=== PATIENT | female | born 1950 | race Caucasian/White ===

== ENCOUNTER 2017-07-12 13:36 | Outpatient (CLI) | payer MEDICARE ==
[2017-07-12 14:07] LABS: CALCIUM 10.2 mg/dL (8.5-10.3); CREATININE 1.2 mg/dL (0.4-1.0); POTASSIUM 4.1 mmol/L (3.5-5.0)
[2017-07-12] MEDS ORDERED: IOPAMIDOL-300 100 ML VIAL ONE (14:17)
[2017-07-12] MEDS ORDERED: IOPAMIDOL-300 50 ML VIAL ONE ×2 (14:17)
[2017-07-12] MEDS ORDERED: IOPAMIDOL-300 50 ML VIAL PO ONE (15:50)
[2017-07-12] MEDS ORDERED: IOPAMIDOL-300 100 ML VIAL IVP ONE (15:52)
--- NOTE | 2017-07-12 16:11 | CT Report ---
CT ABDOMEN AND PELVIS WITH CONTRAST: 07/12/2017 CLINICAL INDICATION: Left-sided pain. TECHNIQUE: Axial CT images of the abdomen and pelvis were obtained with 50 mL Isovue-300 intravenously, due to patient's renal dysfunction. No previous CT is available for comparison. In accordance with CT protocol optimization, one or more of the following dose reduction techniques were utilized for this exam: automated exposure control, adjustment of mA and/or KV based on patient size, or use of iterative reconstructive technique. FINDINGS: Limited evaluation of the lung bases demonstrates patchy atelectasis. Abdomen: There is a large mass in the left upper quadrant, involving the pancreas, the posterior wall of the stomach, and the spleen. Given the location , the most likely origin of the mass is the tail of the pancreas, with direct invasion of the spleen and stomach. Additionally, there is fullness of the left adrenal gland, which may be directly involved. There is lack of enhancement of the distal portion of the splenic vein behind the pancreas, and the splenic vein is likely thrombosed at this level, with collateral veins running anteriorly. Including the portion of involved spleen, this mass measures approximately 10 x 9 x 8 cm. The kidneys appear unremarkable. No definite hepatic lesion is seen. The gallbladder is not distended. No bowel distention, free gas, or free fluid is present. No abdominal adenopathy is appreciated. Pelvis: The appendix is seen in the right lower quadrant, and is normal in caliber. No pelvic adenopathy or free fluid is present. No CT evidence of diverticulitis is appreciated. Osseous structures demonstrate degenerative changes. IMPRESSION: LARGE LEFT UPPER QUADRANT MASS, WITH ITS EPICENTER LIKELY IN THE TAIL OF THE PANCREAS, WITH RESULTANT THROMBOSIS OF THE SPLENIC VEIN. PANCREATIC CANCER APPEARS THE MOST LIKELY PRIMARY ETIOLOGY. RESULTS CALLED TO GOLDEN BLANTON PA-C, ON 07/12/2017 AT 1540 HOURS. JOB #: [id number] EXT JOB #: [id number] EMMA
== END 2017-07-12 13:37 | disposition home or self-care (01) ==
LOC: LAB 13:36 → DI 13:37
PROVIDERS: ATTEND Physician Assistant
DX: R19.02 Left upper quadrant abdominal swelling, mass and lump (principal); I82.890 Acute embolism and thrombosis of other specified veins
CPT/HCPCS: 36415; 74177; 80048; Q9967

== ENCOUNTER 2017-08-30 08:00 | Outpatient (CLI) | payer MEDICARE ==
[2017-08-30 11:11] LABS: BASOPHILS % (AUTO) 1.3 %; EOSINOPHILS % (AUTO) 0.4 %; HCT - HEMATOCRIT 27.2 % (37.0-47.0); HGB - HEMOGLOBIN 9.4 g/dL (12.0-16.0); LYMPHOCYTES % (AUTO) 26.7 %; MEAN CORPUSCULAR HEMOGLOBIN 30.3 pg (27.0-31.0); MEAN CORPUSCULAR HGB CONC 34.5 g/dL (32.0-36.0); MEAN CORPUSCULAR VOLUME 87.6 fL (81.0-99.0); MEAN PLATELET VOLUME 9.6 fL (7.9-10.8); MONOCYTES % (AUTO) 6.3 %; NEUTROPHILS % (AUTO) 65.3 %; RED CELL DISTRIBUTION WIDTH 13.6 % (12.0-15.0)
[2017-08-30 11:19] LABS: CALCIUM 8.6 mg/dL (8.5-10.3); CREATININE 0.9 mg/dL (0.4-1.0); POTASSIUM 3.1 mmol/L (3.5-5.0)
[2017-08-30 11:45] LABS: BAND NEUTROPHILS % (MANUAL) 9 %; EOSINOPHILS % (MANUAL) 1 %; LYMPHOCYTES % (MANUAL) 28 %; NEUTROPHILS % (MANUAL) 53 %; TOTAL CELLS COUNTED 100
[2017-08-30 11:46] LABS: NP AUTO DIFFERENTIAL? YES; NP MAN DIFFERENTIAL? NO; PLATELET ESTIMATE, MANUAL DECREASED (<130,000) (NORMAL); PLATELET MORPHOLOGY NORMAL APPEARANCE (NORMAL)
== END 2017-08-30 08:01 | disposition home or self-care (01) ==
LOC: LAB 08:00
PROVIDERS: ATTEND Internal Medicine Hematology & Oncology
DX: C85.80 Other specified types of non-Hodgkin lymphoma, unspecified site (principal)
CPT/HCPCS: 36415; 80048; 85025

== ENCOUNTER 2017-09-21 10:33 | Outpatient (CLI) | payer MEDICARE ==
[2017-09-21 11:22] LABS: CALCIUM 8.5 mg/dL (8.5-10.3); CREATININE 1.1 mg/dL (0.4-1.0); POTASSIUM 3.7 mmol/L (3.5-5.0)
[2017-09-21 11:26] LABS: BASOPHILS % (AUTO) 3.3 %; EOSINOPHILS % (AUTO) 6.9 %; HGB - HEMOGLOBIN 9.3 g/dL (12.0-16.0); LYMPHOCYTES # (AUTO) 0.5 10^3/uL (1.5-3.5); LYMPHOCYTES % (AUTO) 73.1 %; MEAN CORPUSCULAR HEMOGLOBIN 31.4 pg (27.0-31.0); MEAN CORPUSCULAR HGB CONC 34.4 g/dL (32.0-36.0); MEAN CORPUSCULAR VOLUME 91.3 fL (81.0-99.0); MEAN PLATELET VOLUME 9.9 fL (7.9-10.8); MONOCYTES % (AUTO) 4.8 %; NEUTROPHILS % (AUTO) 11.9 %; NUCLEATED RED BLOOD CELLS AUTO 0.1 /100WBC; RED BLOOD COUNT 2.96 10^6/uL (4.20-5.40); RED CELL DISTRIBUTION WIDTH 16.9 % (12.0-15.0); UNCORRECTED WHITE BLOOD COUNT 0.7 x10^3/uL
[2017-09-21 11:41] LABS: NEUTROPHILS # (AUTO) 0.1 10^3/uL (1.5-6.6); WHITE BLOOD COUNT 0.7 x10^3/uL (4.8-10.8)
[2017-09-21 12:33] LABS: NP AUTO DIFFERENTIAL? NO; NP MAN DIFFERENTIAL? YES; PLATELET ESTIMATE, MANUAL DECREASED (<130,000) (NORMAL); PLATELET MORPHOLOGY NORMAL APPEARANCE (NORMAL)
== END 2017-09-21 10:34 | disposition home or self-care (01) ==
LOC: LAB 10:33
PROVIDERS: ATTEND Internal Medicine Hematology & Oncology
DX: C85.80 Other specified types of non-Hodgkin lymphoma, unspecified site (principal)
CPT/HCPCS: 36415; 80048; 85025

== ENCOUNTER 2020-10-17 12:40 | Outpatient (CLI) | payer MEDICARE ==
[2020-10-17 13:35] VITALS: BP 115/70
--- NOTE | 2020-10-17 13:35 | SLEEP CARE CONSULTATION ---
Information from patient questionnaire entered by Lazara Taylor. I have reviewed and concur with the information entered by Lazara Taylor. This document represents the service I personally performed and the decisions made by me, Cindy Valdes ARNP. History of Present Illness Service Date and Time: 10/17/2020 1240 Reason for Visit: New patient Chief Complaint: reports: Unrefreshed sleep (Dentist thinks i have sleep apnea), Snoring (some), Excessive daytime sleepiness, Frequent awakenings at night (wake up when gets up at night; she is a light sleeper), Other (she doesn't sleep "sound"). denies: Observed pauses in breathing, Fatigue Date of Onset: a year or so Usual bedtime: 11:30 pm Time it takes to fall asleep: 10-15 min Snores at night: Yes (some) Observed to quit breathing while asleep: No Sleeps alone due to snoring: No Number of times waking at night: 3 Reasons for waking at night: reports: Bathroom (sometimes). denies: Choking, Snoring, Gasping for air Toss, Turn, or Twitch while sleeping: Yes Recalls having dreams: Yes (sometimes) Usually gets out of bed at: 8-8:30 am Feels refreshed in the morning: No Morning headache: Yes (3 times a week, gone after morning coffee) Sleepy or fatigued during the day: Yes Ever fallen asleep while driving: No Takes day naps: Yes (sometimes, after dinner recently, most days) Dreams during day naps: No Prior sleep studies: No Additional HPI information: I had the pleasure of seeing JOHN MYRICK today regarding the possibility of her having a sleep disorder. Her current complaints are unrefreshed sleep, snoring and excessive daytime sleepiness. She was told by her dentist that she may have sleep apnea. She does not feel rested most days and that she does not sleep soundly. She does not feel she can breathe through her nose, not enough air. She breathes through her mouth a lot. She has a history of diabetes, depression and hypothyroidism. She has two natural sisters who have sleep apnea and her son al so has sleep apnea. - Parasomnia Symptoms Ever been unable to move upon waking from sleep: No Walks in sleep: Yes Talks in sleep: Yes Ever acted out dreams in sleep: Yes (once) Ever felt weak in the knees when startled or emotional: Yes Bothered by creepy, crawly, restless sensations in legs: No Problems with memory or concentration: Yes Subjective Initial Foster Sleepiness Scale score: 12 (in 2019) Past Medical History Past Medical History: reports: Diabetes, Hypothyroidism, Anxiety, Depression. denies: Hypertension, Coronary Heart Disease, Arrythmia, Anemia, GERD Social History The patient's occupation is a RETIRED. Patient is and lives in [place]. Have you smoked in the past 12 months: No Alcohol use: Yes Alcohol amount and frequency: 1 glass 2 times a month Caffeine use: Yes Caffeine amount and frequency: 6 cups of coffee daily Family History Family history of sleep disordered breathing: Yes (sisters, son with sleep apnea and treated) Allergies and Home Medications Drug allergies reviewed: Yes (NKDA) Home medication list reviewed: Yes Allergy and home medication list: Effexor Lexapro Levothyroxine new diabetic medication, may be glipizide Review of Systems Weight loss over past 5 years: 25 Cardiovascular: denies: high blood pressure Respiratory: reports: shortness of breath Gastrointestinal: denies: heartburn Neurological: reports: headaches. denies: head trauma Psychiatric: reports: anxiety, depression Ear/Nose/Throat: reports: nasal congestion, dry mouth/throat, wisdom teeth removed. denies: injury to nose, tonsillectomy Endocrine: reports: thyroid disease, sluggishness Musculoskeletal: reports: joint pain Immunologic: denies: allergies to food or environment Physical Exam Blood Pressure: 115/70 Cuff size: wrist Heart Rate: 84 O2 Saturation: 100 Height: 5 ft 5 in Weight: 196 lb Body Mass Index: 32.5 BMI Classification: Obese Neck circumference: 14.75 (inches) Nostrils: patent to airflow Turbinates: normal Mouth and throat: narrow oropharynx Uvula visualization: 25% Mallampati Class III Tongue: enlarged in size with teeth rangel on lateral edges Tonsils: 2+ Chin and jaw: normal size and position Neck: normal w/o lymphadenopathy or thyromegaly Heart: regular rate and rhythm Lungs: clear bilaterally Impression and Plan 1. Suspected Obstructive Sleep Apnea-Hypopnea Syndrome, as suggested by a history of loud and irregular snoring, morning headache, frequent awakening during the night, unrefreshed sleep, cognitive impairment, and excessive daytime sleepiness. I reviewed with the patient that a narrow oropharynx and obesity are common predisposing factors for obstructive sleep apnea-hypopnea syndrome. I recommend proceeding to polysomnography to confirm the diagnosis and to assess severity. If the patient has significant sleep disordered breathing, a manual CPAP titration study will also be performed to find the optimal treatment pressure. I informed the patient of what the sleep studies involve and after some discussion, obtained agreement to proceed. The pathophysiology of obstructive sleep apnea-hypopnea syndrome was discussed with the patient and health risks of cardiovascular and cerebrovascular disease if not treated. AAS brochure for obstructive sleep apnea-hypopnea syndrome given and reviewed. Risks of drowsy driving discussed in detail and patient advised to avoid long distance driving and to insole tack puller hand at the first sign of drowsiness. Patient agreed to plan. * Schedule polysomnography +- manual CPAP titration study and return in 1-2 weeks after the study to discuss result and initiate therapy. * Avoid long distance driving or driving when feeling sleepy. * Avoid alcohol, sedative and muscle relaxant around bedtime. * Attempt to lose weight. * Review instructions provided by trained office staff on how to prepare for the sleep study. * Return for follow-up after sleep study completed. Counseling Topics: Weight loss health impact Visit Type: In Office Time Spent with Patient (minutes): 32 Provider Statement: I spent 100% of the Face to Face Visit with the patient with greater than 50% spent counseling the patient and coordination of care.
--- OUTSIDE RECORDS SUMMARY | 2020-10-23 01:10 | EXTERNAL MEDICAL SUMMARY RPT | Continuity of Care Document ---
:1950 Demographics Phone Unavailable Preferred Language Unknown Marital Status Unknown Samaritan Affiliation Unknown Race Unknown Ethnic Group Unknown Author Organization [place] Address [address] [phone] Phone Care Team Providers Name Role Phone [place] Unavailable Unavailable Allergies date description facility INFLUENZA VACCINES [facility] NO KNOWN ENVIRONMENTAL ALLERGIES [facility] PENICILLINS [facility] Social History date description facility [id number]
== END 2020-10-17 12:41 | disposition home or self-care (01) ==
LOC: SC 12:40
PROVIDERS: ATTEND Nurse Practitioner Family
DX: G47.10 Hypersomnia, unspecified (principal); R41.89 Other symptoms and signs involving cognitive functions and awareness; G47.8 Other sleep disorders; R51.9 Headache, unspecified; R06.83 Snoring; E66.9 Obesity, unspecified; Z68.32 Body mass index [BMI] 32.0-32.9, adult
CPT/HCPCS: 99203; G0463; 99212

== ENCOUNTER 2020-11-05 09:56 | Outpatient (CLI) | payer MEDICARE | END 2020-11-05 09:57 | disposition home or self-care (01) | LOC: SC 09:56 | PROVIDERS: ATTEND Nurse Practitioner Family | DX: G47.33 Obstructive sleep apnea (adult) (pediatric) (principal); E66.9 Obesity, unspecified; Z68.32 Body mass index [BMI] 32.0-32.9, adult | CPT/HCPCS: G0399 ×2; 95806 ==

== ENCOUNTER 2020-11-08 09:50 | Outpatient (CLI) | payer MEDICARE ==
--- NOTE | 2020-11-08 10:22 | SLEEP CARE CONSULTATION ---
Information from patient questionnaire entered by Lazara Taylor. I have reviewed and concur with the information entered by Lazara Taylor. This document represents the service I personally performed and the decisions made by , Cindy Valdes ARNP. History of Present Illness Service Date and Time: 11/08/2020 0950 Initial [place] Sleepiness Scale score: 12 (in 2020) Current [place] Sleepiness Scale score: 12 Additional HPI information: JOHN MYRICK returns for follow up and results of the recently performed home sleep study. I explained the pathophysiology behind obstructive sleep apnea. We then spent quite a bit of time discussing different treatment options. For mild obstructive sleep apnea, surgery and oral appliance are alternatives to nasal CPAP therapy but in moderate or severe cases, nasal CPAP is the most effective and reliable treatment. Because apnea is primarily in supine position, then positional management therapy could be effective. Methods discussed such as positioning with pillows, using a T-shirt with tennis balls in the back, and shown commercial products that have a pillow format on back to prevent supine sleep. I reviewed the impact of weight changes on sleep apnea and strongly recommended losing weight. After some discussion, the patient opted to go with the nasal CPAP therapy. Nasal autoCPAP set at [id number] will be ordered with rationale explained. A manual titration study will be ordered if unable to find optimal pressure with office adjustments. I explained how CPAP machine works with sample devices [employer] Dream[employer] and [employer] [id number] and what to expect when using the machine. Using CPAP every night in order to get used to it was emphasized. Patient advised to put CPAP mask on before getting into bed so as not to fall asleep without CPAP. To assist acclimation to CPAP use, it could also be used for a short time during day while reading or watching TV. The patient was instructed to call the CPAP supplier to discuss any mechanical problem that may occur. If the mask given is uncomfortable or is difficult to keep on through the night even with adjustment, contact the CPAP supplier as many will replace with another mask style if notified before 30 days. If snoring or perceives is not getting enough air or too much air from the machine, notify this office. Patient was cautioned about risks of drowsy driving until sleepiness symptoms resolve. Sleep Study - Results Type of Sleep Study: Home sleep study Prior sleep studies: No Polysomnography/Home Sleep Study results: Physician Impression: The quality of the study is good. The length of the study is adequate (> 240 minutes). Please also see the tabulated and graphic data. 1. Obstructive Sleep Apnea-Hypopnea (ICD-10 G47.33), mild, with an AHI of 8.6/hr and claudia SaO2 of 85%. During the study, the patient had 37 apneas (36 obstructive, 0 central, 1 mixed) and 32 hypopneas. The longest episode lasted 68.5 seconds. The respiratory events occurred more frequently during supine sleep (supine AHI was 9.9 and non-supine, 4.26). 2. Hypoxemia (ICD-10 R09.02), mild, with the lowest oxygen saturation of 85 % and 13.7 minutes with SaO2 under 90%. Baseline oxygen saturation was normal (Average oxygen saturation was 92%). Allergies and Home Medications Home medication list reviewed: Yes Allergy and home medication list: new: Escitalopram 5 mg Levothyroxin 88 mcg Glipizide ER 5 mg Venlafaxine 150 mg Simvastatin 10 mg Physical Exam Heart Rate: 87 O2 Saturation: 98 Height: 5 ft 5 in Weight: 196 lb Body Mass Index: 32.5 BMI Classification: Obese Impression and Plan 1. Obstructive Sleep Apnea-Hypopnea Syndrome, mild, with lowest oxygen saturation of 85%. Obviously this is the cause of the patients symptoms of unrefreshed sleep, and excessive daytime sleepiness. Positive pressure therapy could benefit diabetes, anxiety and depression. As mentioned above, the patient will be started on nasal autoCPAP therapy with pressure set at 4-15 cmH2O. A manual titration study will be completed if unable to find optimal treatment pressure with office adjustments. Compliance guidelines also reviewed. A copy of compliance guidelines will be given for reference at check out. Because the apnea is more severe supine, I instructed to avoid sleeping supine using pillow positioning until able to start CPAP use. * Nasal auto CPAP therapy, pressure at 4-15 cm H2O. * Avoid alcohol consumption near bedtime. * Avoid supine sleep until using CPAP. * The patient is again cautioned about driving until sleepiness completely resolves. * Return one month after CPAP obtained. I will assess response to therapy and compliance at that time. Visit Type: In Office Time Spent with Patient (minutes): 20 Provider Statement: I spent 100% of the Face to Face Visit with the patient with greater than 50% spent counseling the patient and coordination of care.
== END 2020-11-08 09:51 | disposition home or self-care (01) ==
LOC: SC 09:50
PROVIDERS: ATTEND Nurse Practitioner Family
DX: G47.33 Obstructive sleep apnea (adult) (pediatric) (principal); E66.9 Obesity, unspecified; Z68.32 Body mass index [BMI] 32.0-32.9, adult
CPT/HCPCS: 99213; G0463; 99212

== ENCOUNTER 2020-11-22 09:44 | Outpatient (CLI) | payer MEDICARE | END 2020-11-22 09:45 | disposition home or self-care (01) | LOC: NS 09:44 | PROVIDERS: ATTEND Physician Assistant | DX: Z71.3 Dietary counseling and surveillance (principal); E11.9 Type 2 diabetes mellitus without complications; E78.2 Mixed hyperlipidemia; E66.9 Obesity, unspecified; Z68.32 Body mass index [BMI] 32.0-32.9, adult | CPT/HCPCS: 97802 ==

== ENCOUNTER 2020-12-06 09:48 | Outpatient (CLI) | payer MEDICARE | END 2020-12-06 09:49 | disposition home or self-care (01) | LOC: NS 09:48 | PROVIDERS: ATTEND Physician Assistant | DX: Z71.3 Dietary counseling and surveillance (principal); E11.9 Type 2 diabetes mellitus without complications; E78.2 Mixed hyperlipidemia; E66.09 Other obesity due to excess calories; Z68.32 Body mass index [BMI] 32.0-32.9, adult | CPT/HCPCS: 97803 ==

== ENCOUNTER 2021-01-03 10:32 | Outpatient (CLI) | payer MEDICARE | END 2021-01-03 10:33 | disposition home or self-care (01) | LOC: NS 10:32 | PROVIDERS: ATTEND Physician Assistant | DX: Z71.3 Dietary counseling and surveillance (principal); E11.9 Type 2 diabetes mellitus without complications; E78.2 Mixed hyperlipidemia; E66.9 Obesity, unspecified; Z68.32 Body mass index [BMI] 32.0-32.9, adult | CPT/HCPCS: 97803 ==

== ENCOUNTER 2021-01-06 10:18 | Outpatient (CLI) | payer MEDICARE ==
--- NOTE | 2021-01-07 10:20 | SLEEP CARE CONSULTATION ---
Information from patient questionnaire entered by Lazara Taylor. I have reviewed and concur with the information entered by Lazara Taylor. This document represents the service I personally performed and the decisions made by me, Ross Byrnes MD, [facility]. History of Present Illness Service Date and Time: 01/06/2021 1018 Previous diagnosis: Mild, Obstructive Sleep Apnea-Hypopnea Syndrome AHI: 8.6 (in 2020) Reason for follow up: first compliance Equipment type: CPAP Equipment obtained from: Other ([facility]) Mask style: Full face Prior sleep studies: Yes Year and Where: 2020 - [facility] Sleep Type of Sleep Study: Home sleep study HPI additional information: HPI: Ms. Devlin returned today for follow up of nasal CPAP therapy. She was diagnosed to have mild obstructive sleep apnea-hypopnea syndrome. The patient went to [facility] for the equipment and was fitted with a full face mask because she prefers to breathe through her mouth. She reports using the device nightly and all through the night. The compliance report shows usage in 29 nights out of the past 30 nights, averaging 8.2 hours a night. She complained of occasional dryness in her nose but no particular problem with the device such as soreness on the face, epistaxis, nasal congestion or headache. She has her heated humidifier set at 5. She thinks that the pressure of 4 - 15 cmH2O is comfortable. On the CPAP therapy she notices improvement in her sleep quality, and that she wakes up feeling fresher in the morning and more awake/alert during the day. The [place] Sleepiness Scale score 3. Her notices no snore. The average residual AHI is 2.6; and air leak, 1.1 L/min. The 90th percentile pressure is 11.2 cmH2O. CPAP Compliance Data - Data Reviewed with Patient Average duration of nightly device use: 8 hr 14 min Compliance rate %: 97 Current pressure setting (cmH2O): 4-15 Humidity settin Average residual AHI: 2.6 Subjective Missed days of use due to: reports: other (no power stripe) Patient concerns: reports: air blowing in eyes, dry mouth, nose, throat, other (headache) Initial [place] Sleepiness Scale score: 12 (in 2019) Current [place] Sleepiness Scale score: 3 Allergies and Home Medications Drug allergies reviewed: Yes Home medication list reviewed: Yes Review of Systems Review of systems same as previous: Yes Physical Exam Height: 5 ft 5 in Weight: 197 lb Body Mass Index: 32.8 BMI Classification: Obese Impression and Plan IMPRESSION: 1. Obstructive Sleep Apnea-Hypopnea Syndrome, mild (AHI was 8.6), with the patient doing well on nasal CPAP therapy. She has excellent compliance and significant clinical improvement. The current pressure appears effective and comfortable. Overall, she is very satisfied with treatment and plans to continue with it long-term. No adjustment is necessary today. PLAN: 1. Continue with autoCPAP set at 4 - 15 cmH2O. 2. Try to lose weight 3. Turn up the heated humidifier further if still dry. 4. Try other full face masks, e.g. Resp[employer]ics DreamWear and [employer] F30i full face masks. 5. Return in one year for follow up or earlier if there is any problem with the treatment. Follow up recommended for: Weight management Visit Type: In Office Time Spent with Patient (minutes): 15 Provider Statement: I spent 100% of the Face to Face Visit with the patient with greater than 50% spent counseling the patient and coordination of care.
== END 2021-01-06 10:19 | disposition home or self-care (01) ==
LOC: SC 10:18
PROVIDERS: ATTEND Internal Medicine Pulmonary Disease
DX: G47.33 Obstructive sleep apnea (adult) (pediatric) (principal); E66.9 Obesity, unspecified; Z68.32 Body mass index [BMI] 32.0-32.9, adult
CPT/HCPCS: 99212; G0463

== ENCOUNTER 2021-05-19 11:20 | Outpatient (CLI) | payer MEDICARE ==
--- NOTE | 2021-05-20 16:08 | Mammography Report ---
BILATERAL DIGITAL SCREENING MAMMOGRAM 3D/2D: 05/19/2021 CLINICAL: Routine screening. Comparison is made to exams dated: 10/01/2014 mammogram and 07/21/2010 mammogram - [facility]. The tissue of both breasts is predominantly fatty. No significant masses, calcifications, or other findings are seen in either breast. There has been no significant interval change. IMPRESSION: NEGATIVE There is no mammographic evidence of malignancy. A 1 year screening mammogram is recommended. This exam was interpreted at Station ID: [id number]. NOTE: For mammograms, a report in lay terms will be sent to the patient. Approximately 15% of breast malignancies will not be visualized mammographically. In the management of a palpable breast mass, a negative mammogram must not discourage biopsy of a clinically suspicious lesion. Electronically Signed By: Jay Guthrie M.D. ar/penrad:05/19/2021 12:06:31 ACR BI-RADS Category 1: Negative 3341F PARENCHYMAL PATTERN: (F) - The breast(s) demonstrate(s) diffuse fatty replacement. BI-RADS CATEGORY: (1) - 1 RECOMMENDATION: (ANNUAL) - Recommend routine annual screening mammography. [id number] 1 year screening LATERALITY: (B)
== END 2021-05-19 11:21 | disposition home or self-care (01) ==
LOC: DI.N 11:20
DX: Z12.31 Encounter for screening mammogram for malignant neoplasm of breast (principal)

== ENCOUNTER 2021-07-07 08:00 | Outpatient (CLI) | payer MEDICARE | END 2021-07-07 23:59 | disposition home or self-care (01) | LOC: LAB.N 08:00 | PROVIDERS: ATTEND Physician Assistant Medical | DX: R07.0 Pain in throat (principal) ==

== ENCOUNTER 2023-02-10 12:35 | Outpatient (CLI) | payer MEDICARE ==
--- NOTE | 2023-02-11 12:26 | Mammography Report ---
BILATERAL DIGITAL DIAGNOSTIC MAMMOGRAM 3D/2D: 02/10/2023 CLINICAL: Focal right breast pain and lump. Due for bilateral imaging. Comparison is made to exams dated: 05/19/2021 mammogram, 10/01/2014 mammogram, and 07/21/2010 mammogra m - [facility]. Both breasts are almost entirely fatty (category a/<25% glandular tissue). There is a new 1.6 cm irregular high density mass in the right breast at 12 o'clock middle depth 6 cm from the nipple. This correlates as palpated. No other significant masses, calcifications, or other findings are seen in either breast. IMPRESSION: INCOMPLETE: NEEDS ADDITIONAL IMAGING EVALUATION The new 1.6 cm irregular high density mass in the right breast is indeterminate. An ultrasound is re commended. Based on the Tyrer Cuzick model (a risk assessment model) the patients lifetime risk is 1.9% and her 10 year risk is 1.6%. According to the ACR, ACS, and NCCN guidelines, an annual breast MRI exam suzette g with mammogram is recommended if the patients lifetime risk is 20% or greater. This exam was interpreted at Station ID: [id number]. NOTE: For mammograms, a report in lay terms will be sent to the patient. Approximately 15% of breast malignancies will not be visualized mammographically. In the management of a palpable breast mass, a negative mammogram must not discourage biopsy of a clinically suspicious lesion. Electronically Signed By: Davin Virk M.D. acr/penrad:02/10/2023 13:56:19 ACR BI-RADS Category 0: Incomplete 3340F PARENCHYMAL PATTERN: (F) - The breast(s) demonstrate(s) diffuse fatty replacement. BI-RADS CATEGORY: (0) - 0 Ultrasound [id number] Immediate follow-up LATERALITY: (B)
--- NOTE | 2023-02-11 12:26 | Ultrasound Report ---
LIMITED ULTRASOUND OF RIGHT BREAST, AXILLA, AND SUPRACLAVICULAR: 02/10/2023 CLINICAL: Palpable right breast lump. Comparison is made to exams dated: 07/21/2010 mammogram, 10/01/2014 mammogram, 05/19/2021 mammogram, a nd 02/10/2023 mammogram - [facility]. Color flow ultrasound of the right breast 12 o'clock, axilla, and supraclavicular regions was perform ed. Small scale images of the real-time examination were reviewed. There is a 1.4 cm x 1.7 cm irregular mass in the right breast at 12 o'clock posterior depth 6 cm from the nipple. This irregular mass is hypoechoic with posterior acoustic shadowing. IMPRESSION: HIGHLY SUGGESTIVE OF MALIGNANCY The 1.4 cm x 1.7 cm irregular mass in the right breast is highly suggestive of malignancy. An ultras ound guided biopsy is recommended. These findings and recommendation were discussed with the patient by DR Braun This exam was interpreted at Station ID: [id number]. Electronically Signed By: Davin Virk M.D. acr/:02/10/2023 14:02:46 Ultrasound BI-RADS: 5 Highly suggestive of malignancy BI-RADS CATEGORY: (5) - 5 Biopsy follow-up [id number] Immediate follow-up LATERALITY: (B)
== END 2023-02-10 12:36 | disposition home or self-care (01) ==
LOC: DI 12:35
PROVIDERS: ATTEND Student in an Organized Health Care Education/Training Program
DX: N63.15 Unspecified lump in the right breast, overlapping quadrants (principal); N64.4 Mastodynia

== ENCOUNTER 2023-02-25 09:22 | Outpatient (CLI) | payer MEDICARE ==
[2023-02-25] MEDS ORDERED: LIDOCAINE 1%-EPI 1:100000 20 ML MDV ONE (09:49)
[2023-02-25] MEDS ORDERED: LIDOCAINE-MPF 1% 5 ML VIAL ONE (09:49)
[2023-02-25] MEDS ORDERED: LIDOCAINE 1%-EPI 1:100000 20 ML MDV SUBQ ONE (11:53)
[2023-02-25] MEDS ORDERED: LIDOCAINE-MPF 1% 5 ML VIAL TD ONE (11:54)
--- NOTE | 2023-02-26 11:30 | Mammography Report ---
UNILATERAL RIGHT DIGITAL DIAGNOSTIC MAMMOGRAM POST-PROCEDURE IMAGING FOR MARKER PLACEMENT: 02/25/2023 CLINICAL: Post right breast ultrasound biopsy clip placement imaging. Comparison is made to exams dated: 02/10/2023 mammogram, 05/19/2021 mammogram, 10/01/2014 mammogram, and 07/21/2010 mammogram - [facility]. The right breast is almost entirely fatty (category a/<25% glandular tissue). There is a marker clip in the appropriate position in the right breast middle depth central to the ni pple seen on the craniocaudal view only. This marker clip placement is at the biopsy site. IMPRESSION: POST PROCEDURE MAMMOGRAM FOR MARKER PLACEMENT There was a successful marker clip placement in the right breast middle depth central to the nipple s een on the craniocaudal view only. Based on the Tyrer Cuzick model (a risk assessment model) the patients lifetime risk is 1.9% and her 10 year risk is 1.6%. According to the ACR, ACS, and NCCN guidelines, an annual breast MRI exam suzette g with mammogram is recommended if the patients lifetime risk is 20% or greater. This exam was interpreted at Station ID: Unknown. NOTE: For mammograms, a report in lay terms will be sent to the patient. Approximately 15% of breast malignancies will not be visualized mammographically. In the management of a palpable breast mass, a negative mammogram must not discourage biopsy of a clinically suspicious lesion. Electronically Signed By: Linda Braun M.D. [facility]/:02/25/2023 21:31:55 ACR BI-RADS Category Post-procedure mammogram for marker placement PARENCHYMAL PATTERN: (F) - The breast(s) demonstrate(s) diffuse fatty replacement. BI-RADS CATEGORY: () - Unspecified - other recall n/a LATERALITY: (B)
--- NOTE | 2023-03-02 11:09 | Ultrasound Report ---
ULTRASOUND GUIDED BIOPSY RIGHT BREAST USING VACUUM DEVICE WITH MARKING DEVICE INSERTED AND POST MAMMO GRAPHIC IMAGIN02/25/2023 CLINICAL: Right breast mass. PATIENT CONSENT: Risks (minor bleeding, infection, vasovagal reaction and repeat procedure), benefits and alternatives were explained to the patient and written informed consent was obtained. Correlation is made to exams dated: 02/10/2023 ultrasound, 02/10/2023 mammogram, 05/19/2021 mammogram, mammogram, and 07/21/2010 mammogram - [facility]. An ultrasound guided biopsy using real-time ultrasound was performed for the indistinct irregular sha ped mass located in the right breast at 12 o'clock middle depth. This was described on the previous mammography and ultrasound reports. The skin was prepped in the usual manner. Local anesthetic was administered to the access site. A skin denny was made in the breast. The abnormality was approached from the lateral aspect. A biopsy needle was placed adjacent to the abnormality under ultrasound gu idance. Once the needle was documented to be in the correct location, a specimen was obtained using the Mammotome biopsy system. A titanium clip was inserted into the biopsy cavity. A sterile dressin g was applied to the access site. Post procedure mammographic imaging was obtained. The specimen wa s sent to the laboratory for pathological analysis. IMPRESSION: ULTRASOUND GUIDED BIOPSY MALIGNANT Ultrasound guided biopsy of the mass in the right breast at 12 o'clock middle depth was successful. Pathology indicates malignant invasive ductal carcinoma (ID). Pathology results are concordant with imaging findings. A surgical/oncologic consultation is recommended. This exam was interpreted at Station ID: [id number]. Linda Wilhelm M.D. [facility],aty/:03/01/2023 17:48:19 BI-RADS CATEGORY: () - Unspecified - other recall n/a LATERALITY: (B)
== END 2023-02-25 09:23 | disposition home or self-care (01) ==
LOC: DI 09:22
PROVIDERS: ATTEND Student in an Organized Health Care Education/Training Program
DX: C50.811 Malignant neoplasm of overlapping sites of right female breast (principal); Z17.1 Estrogen receptor negative status [ER-]
CPT/HCPCS: 19083